=== PATIENT | male | born 1970 | race Caucasian/White ===

== ENCOUNTER 2016-04-19 10:22 | Emergency (ER) | payer BC, OTHER | END 2016-04-19 11:31 | disposition home or self-care (01) | LOC: ER 10:22 | DX: Y04.0XXA Assault by unarmed brawl or fight, initial encounter (principal); Y93.9 Activity, unspecified; Y92.098 Other place in other non-institutional residence as the place of occurrence of the external cause; S10.91XA Abrasion of unspecified part of neck, initial encounter; S00.91XA Abrasion of unspecified part of head, initial encounter; S23.3XXA Sprain of ligaments of thoracic spine, initial encounter; I10 Essential (primary) hypertension; S00.83XA Contusion of other part of head, initial encounter; F17.210 Nicotine dependence, cigarettes, uncomplicated | CPT/HCPCS: 72072 ==